=== PATIENT | female | born 1995 | race Caucasian/White ===

== ENCOUNTER 2017-11-16 21:30 | Emergency (ER) | payer OTHER ==
[2017-11-16 21:36] VITALS: BP 132/87; PULSE 90; RESP 16; TEMP 97.9; O2SAT 97
--- NOTE | 2017-11-16 22:14 | EDPHY ---
H & P Time Seen by Provider: 11/16/17 21:42 HPI/ROS: CHIEF COMPLAINT: Rash after "dirty hot tub" HISTORY OF PRESENT ILLNESS: 22-year-old immunocompetent female complaining of multiple pruritic discrete lesions on her legs, suprapubic region, after being in a self-described dirty hot tub 2 days ago. No lesions to the palmar plantar surfaces. No fever chills no nausea no vomiting. REVIEW OF SYSTEMS: A ten point review of systems was performed and is negative with the exception of the items mentioned in the HPI PAST MEDICAL & SURGICAL HISTORY: No pertinent medical or surgical history SOCIAL HISTORY: Student PHYSICAL EXAM (Prior to examination, patient consented to physical exam, hands were washed and my usual and customary physical exam procedures followed) 1) GENERAL: Well-developed, well-nourished, alert and oriented. Appears to be in no acute distress. 2) HEAD: Normocephalic, atraumatic 3) HEENT: Pupils equal, round, reactive to light bilaterally. No injection Nasopharynx, oropharynx, clear, no lesions. 4) NECK: Full range of motion, no meningeal signs. 5) LUNGS: Clear auscultation bilaterally, no wheezes, no rhonchi, no retractions. 6) HEART: Regular rate and rhythm, no murmur, no heave, no gallop. 7) ABDOMEN: No guarding, no rebound, no focal tenderness, 8) MUSCULOSKELETAL: No peripheral edema or discoloration. 9) BACK: No CVA tenderness. 10) SKIN: On the patient's bilateral lower extremities, bilateral knees, just and trauma, suprapubic region, sparing the labia, patient has multiple discrete erythematous, excoriated papules. Nonvesicular. Non coalescing. Do not follow a dermatomal distribution 11) Psychiatric: Patient is oriented X 3, there is no agitation. 12) : Similar lesions on the suprapubic region location of her suprapubic hair, no labial lesions. DIFFERENTIAL DIAGNOSIS: In no particular include but limited to cellulitis, Pseudomonas hot tub folliculitis, Raymundo-Graeme Smoking Status: Never smoked Constitutional: Initial Vital Signs Temperature (C) 36.6 C 11/16/17 21:34 Heart Rate 90 11/16/17 21:34 Respiratory Rate 16 11/16/17 21:34 Blood Pressure 132/87 H 11/16/17 21:34 O2 Sat (%) 97 11/16/17 21:34 O2 Delivery Mode Room Air Allergies/Adverse Reactions: No Known Allergies Allergy (Unverified 09/07/16 10:43) Home Medications: Medication Instructions Recorded [facility] Control 09/07/16 MDM/Departure - MDM ED Course/Re-evaluation: Doubt cellulitis, doubt Raymundo-Graeme. High clinical suspicion for Pseudomonas hot tub folliculitis. We discussed that this is primarily a self- limited condition. At this time I do not think that the benefits of fluoroquinolone therapy outweigh the risks in 22-year-old active female. Given usual and customary discharge precautions instructions. She feels comfortable being discharged. Care of patient under supervision of secondary supervising physician Dr Langford . - Depart Disposition: Home, Routine, Self-Care Clinical Impression: Hot tub folliculitis Condition: Good Instructions: Folliculitis (ED) Additional Instructions: Return to the emergency department if you develop new or worsening symptoms, usual fevers or chills or any other symptoms that concern you. Referrals: ERIC Obrien,. [Clinic] - 2-3 days, call for appt.
== END 2017-11-16 22:29 | disposition home or self-care (01) ==
DX: L73.9 Follicular disorder, unspecified (principal)